=== PATIENT | male | born 1945 | race Caucasian/White ===

== ENCOUNTER 2022-06-16 18:16 | Inpatient (IN) ==
[2022-06-16 18:56] LABS: Immature Platelets 7.5 % (1.1-6.1); Nucleated Red Blood Cells 0.3 /100 WBC (0)
[2022-06-16 19:01] LABS: Basophils % 0.1 %; Eosinophils # 0.2 K/mcL (0.0-0.6); Eosinophils % 2.7 %; Immature Granulocytes % 0.4 % (0-4); Lymphocytes % 12.6 %; Mean Corpuscular HGB Conc 26.4 g/dL (31.6-35.5); Mean Corpuscular Hemoglobin 25.6 pg (28.0-33.3); Mean Corpuscular Volume 96.8 fL (83.0-100.0); Monocytes # 0.7 K/mcL (0.0-1.3); Monocytes % 10.3 %; Platelet Count 224 K/mcL (140-400); Red Blood Count 1.25 M/mcL (4.19-5.50); Red Cell Distribution Width 18.7 % (11.5-14.5); Segmented Neutrophils % 73.9 %; White Blood Count 6.7 K/mcL (4.3-11.1)
[2022-06-16 19:14] LABS: Lymphocytes # 0.8 K/mcL (0.6-4.6)
[2022-06-16 19:15] LABS: Hematocrit 12.1 % (37.5-50.1); Hemoglobin 3.2 g/dL (12.9-16.9)
[2022-06-16 19:26] LABS: Anisocytosis 1+ (Not Present); BUN/Creatinine Ratio 18 (6-26); Blood Urea Nitrogen 17 mg/dL (8-23); Calcium 8.3 mg/dL (8.6-10.3); Carbon Dioxide 32 mEq/L (23-29); Chloride 100 mEq/L (98-107); Glucose 112 mg/dL (70-105); Hypochromasia Present (Not Present); Osmolality,Calculated 284 (280-300); Platelet Estimate Normal (Normal); Poikilocytosis 1+ (Not Present); Potassium 4.2 mEq/L (3.5-5.1); Sodium 136 mEq/L (136-145); Troponin I 0.45 ng/mL (< 0.04); eGFR For African Americans > 60 (> 60); eGFR For Non-African Americans > 60 (> 60)
[2022-06-16] MEDS ORDERED: 0.9 % Sodium Chloride 250 ML ONE (20:28)
[2022-06-16] MEDS ORDERED: Iopamidol - 370 500 ML MLS IVP ONE (21:04)
[2022-06-16] MEDS ORDERED: Naloxone 0.4 MG/ML INJ IVP PRN (21:12)
[2022-06-16] MEDS ORDERED: *HR* HYDROcodone/Acet 5/325 mg TABLET PO PRN (21:12)
[2022-06-16] MEDS ORDERED: Acetaminophen 325 MG TABLET PO PRN (21:12)
[2022-06-16] MEDS ORDERED: *HR* OxyCODONE Immed Rel 5 MG TABLET PO PRN (21:12)
[2022-06-16] MEDS ORDERED: *HR* Promethazine 25 MG/ML VIAL IM PRN (21:12)
[2022-06-16] MEDS ORDERED: Ondansetron 4 MG/2 ML VIAL IVP PRN (21:12)
[2022-06-16] MEDS ORDERED: Melatonin 3 MG TABLET PO PRN (21:12)
[2022-06-16 21:55] LABS: % Iron Saturation 3 % (20-55); Ferritin < 8 ng/mL (20-250); Iron 15 mcg/dL (65-175); Transferrin 389 mg/dL (203-362)
[2022-06-16 22:01] LABS: Folate 12.3 ng/mL (3.0-16.0)
[2022-06-16 22:01] LABS: Immature Reticulocyte % 18.3 % (11.0-38.0); Retculocyte # 0.02 M/mcL (0.05-0.10); Reticulocyte % 2.1 % (1.6-2.8)
[2022-06-16] MEDS ORDERED: Cyanocobalamin (B-12) 1,000 MCG/ML VIAL SQ ONE (22:04)
[2022-06-16] MEDS ORDERED: Furosemide 20 MG/2 ML VIAL IVP ONE (22:05)
[2022-06-16 22:06] LABS: INR 1.1; Prothrombin Time 12.4 Seconds (9.4-12.1)
[2022-06-16] MEDS ORDERED: hydrOXYzine pamoate 25 MG CAPSULE PO ONE (22:45)
[2022-06-16] MEDS ORDERED: Nicotine 21 MG PATCH.TD24 TD SCH (22:45)
[2022-06-17] MEDS ORDERED: Nicotine 21 MG PATCH.TD24 TD ONE (00:30)
[2022-06-17] MEDS: Pantoprazole 40 MG VIAL IVP SCH ×2 (04:39→17:03)
[2022-06-17 05:38] LABS: Basophils % 0.5 %; Mean Platelet Volume 11.3 fL (9.4-12.4); Red Blood Count 1.79 M/mcL (4.19-5.50)
[2022-06-17 05:39] LABS: Eosinophils # 0.2 K/mcL (0.0-0.6); Eosinophils % 3.2 %; Immature Granulocytes % 0.3 % (0-4); Lymphocytes # 0.9 K/mcL (0.6-4.6); Lymphocytes % 14.9 %; Mean Corpuscular HGB Conc 29.4 g/dL (31.6-35.5); Mean Corpuscular Hemoglobin 27.9 pg (28.0-33.3); Monocytes # 0.7 K/mcL (0.0-1.3); Monocytes % 11.8 %; Nucleated Red Blood Cells 0.5 /100 WBC (0); Platelet Count 173 K/mcL (140-400); Red Cell Distribution Width 16.6 % (11.5-14.5); Segmented Neutrophils % 69.3 %; White Blood Count 6.3 K/mcL (4.3-11.1)
[2022-06-17 05:48] LABS: INR 1.1; Prothrombin Time 12.4 Seconds (9.4-12.1)
[2022-06-17 05:49] LABS: Neutrophils # 4.4 K/mcL (1.6-8.9)
[2022-06-17 06:03] LABS: Alanine Aminotransferase 8 Units/L (7-52); Albumin 3.2 g/dL (3.5-5.7); Albumin/Globulin Ratio 1.2 (1.1-2.2); Alkaline Phosphatase 66 Units/L (34-104); Aspartate Amino Transferase 16 Units/L (13-39); BUN/Creatinine Ratio 20 (6-26); Bilirubin,Total 0.6 mg/dL (0.3-1.0); Blood Urea Nitrogen 17 mg/dL (8-23); Calcium 8.3 mg/dL (8.6-10.3); Carbon Dioxide 31 mEq/L (23-29); Chloride 102 mEq/L (98-107); Globulin 2.6 g/dL (2.4-3.5); Glucose 85 mg/dL (70-105); Magnesium 2.1 mg/dL (1.6-2.6); Osmolality,Calculated 285 (280-300); Phosphorous 3.2 mg/dL (2.7-4.5); Potassium 4.3 mEq/L (3.5-5.1); Sodium 137 mEq/L (136-145); Total Protein 5.8 g/dL (6.4-8.9); eGFR For African Americans > 60 (> 60); eGFR For Non-African Americans > 60 (> 60)
[2022-06-17 06:18] LABS: Hypochromasia Present (Not Present); Platelet Estimate Normal (Normal); Polychromasia 1+ (Not Present)
[2022-06-17] MEDS ORDERED: 0.9 % Sodium Chloride 250 ML ONE ×2 (06:28→10:22)
[2022-06-17] MEDS: Nicotine 21 MG PATCH.TD24 TD SCH (07:54)
[2022-06-17 09:31] LABS: Alanine Aminotransferase 8 Units/L (7-52); Albumin 3.5 g/dL (3.5-5.7); Albumin/Globulin Ratio 1.2 (1.1-2.2); Alkaline Phosphatase 79 Units/L (34-104); Aspartate Amino Transferase 14 Units/L (13-39); Bilirubin,Direct 0.1 mg/dL (0.0-0.2); Bilirubin,Indirect 0.2 mg/dL (0.0-1.0); Bilirubin,Total 0.3 mg/dL (0.3-1.0); Globulin 2.9 g/dL (2.4-3.5); Total Protein 6.4 g/dL (6.4-8.9)
[2022-06-17 14:31] LABS: Hematocrit 24.1 % (37.5-50.1); Hemoglobin 7.4 g/dL (12.9-16.9)
[2022-06-17] MEDS ORDERED: SODIUM CHLORIDE/NAHCO3/KCL/PEG 4,000 ML SOLN.RECON PO ONE (17:00)
[2022-06-17] MEDS: ALPRAZolam 0.25 MG TABLET PO PRN (22:10)
[2022-06-18 03:23] LABS: Nucleated Red Blood Cells 0.5 /100 WBC (0)
[2022-06-18 03:25] LABS: Basophils % 0.5 %; Eosinophils # 0.2 K/mcL (0.0-0.6); Eosinophils % 3.9 %; Hemoglobin 6.9 g/dL (12.9-16.9); Immature Granulocytes % 0.4 % (0-4); Immature Platelets 8.1 % (1.1-6.1); Lymphocytes # 0.9 K/mcL (0.6-4.6); Lymphocytes % 15.3 %; Mean Corpuscular HGB Conc 31.4 g/dL (31.6-35.5); Mean Corpuscular Hemoglobin 28.8 pg (28.0-33.3); Mean Corpuscular Volume 91.7 fL (83.0-100.0); Mean Platelet Volume 11.1 fL (9.4-12.4); Monocytes # 0.8 K/mcL (0.0-1.3); Monocytes % 13.7 %; Neutrophils # 3.7 K/mcL (1.6-8.9); Platelet Count 141 K/mcL (140-400); Red Cell Distribution Width 17.3 % (11.5-14.5); Segmented Neutrophils % 66.2 %; White Blood Count 5.6 K/mcL (4.3-11.1)
[2022-06-18 03:35] LABS: Phosphorous 2.7 mg/dL (2.7-4.5)
[2022-06-18] MEDS: Pantoprazole 40 MG VIAL IVP SCH ×2 (05:03→17:46)
[2022-06-18] MEDS: Furosemide 20 MG/2 ML VIAL IVP SCH ×2 (07:52→17:46)
[2022-06-18] MEDS: Nicotine 21 MG PATCH.TD24 TD SCH (07:53)
[2022-06-18] MEDS ORDERED: Iron Sucrose Complex 400 MG in 0.9 % Sodium Chloride 250 ML IVPB ONE (09:00)
[2022-06-18 09:28] LABS: Hemoglobin 7.6 g/dL (12.9-16.9)
[2022-06-18] MEDS ORDERED: Cyanocobalamin (B-12) 1,000 MCG/ML VIAL SQ ONE (10:45)
[2022-06-18] MEDS ORDERED: Perflutren Lipid Microsphere 1.3 ML in 0.9 % Sodium Chloride 8.7 ML IVP PRN (11:02)
[2022-06-18] MEDS: ALPRAZolam 0.25 MG TABLET PO PRN ×2 (13:46→20:21)
[2022-06-18] MEDS ORDERED: Lidocaine -MPF 2% 5 ML VIAL ONE (14:01)
[2022-06-18] MEDS ORDERED: *HR* Propofol 200 MG/20 ML VIAL IVP ONE (15:36)
[2022-06-18] MEDS: Pregabalin 75 MG CAPSULE PO SCH (20:21)
[2022-06-19 03:42] LABS: Basophils % 0.2 %; Eosinophils # 0.2 K/mcL (0.0-0.6); Eosinophils % 1.7 %; Hematocrit 25.2 % (37.5-50.1); Hemoglobin 7.4 g/dL (12.9-16.9); Immature Granulocytes % 0.3 % (0-4); Lymphocytes # 0.6 K/mcL (0.6-4.6); Lymphocytes % 6.7 %; Mean Corpuscular HGB Conc 29.4 g/dL (31.6-35.5); Mean Corpuscular Volume 95.5 fL (83.0-100.0); Mean Platelet Volume 11.3 fL (9.4-12.4); Monocytes % 9.6 %; Neutrophils # 7.2 K/mcL (1.6-8.9); Nucleated Red Blood Cells 0.2 /100 WBC (0); Platelet Count 146 K/mcL (140-400); Red Blood Count 2.64 M/mcL (4.19-5.50); Red Cell Distribution Width 17.4 % (11.5-14.5); Segmented Neutrophils % 81.5 %
[2022-06-19 03:44] LABS: Monocytes # 0.8 K/mcL (0.0-1.3); White Blood Count 8.8 K/mcL (4.3-11.1)
[2022-06-19 04:01] LABS: BUN/Creatinine Ratio 14 (6-26); Blood Urea Nitrogen 16 mg/dL (8-23); Calcium 8.1 mg/dL (8.6-10.3); Carbon Dioxide 33 mEq/L (23-29); Chloride 98 mEq/L (98-107); Glucose 117 mg/dL (70-105); Magnesium 1.8 mg/dL (1.6-2.6); Osmolality,Calculated 288 (280-300); Phosphorous 3.3 mg/dL (2.7-4.5); Potassium 3.2 mEq/L (3.5-5.1); Sodium 138 mEq/L (136-145); eGFR For African Americans > 60 (> 60); eGFR For Non-African Americans > 60 (> 60)
[2022-06-19] MEDS: Pantoprazole 40 MG VIAL IVP SCH ×2 (06:48→16:22)
[2022-06-19] MEDS ORDERED: SULFUR HEXAFLUORIDE MICROSPHR 25 MG VIAL IVP ONE ×2 (08:41→10:20)
[2022-06-19] MEDS: Nicotine 21 MG PATCH.TD24 TD SCH (09:32)
[2022-06-19] MEDS: ALPRAZolam 0.25 MG TABLET PO PRN ×2 (09:34→16:23)
[2022-06-19] MEDS: Pregabalin 75 MG CAPSULE PO SCH ×2 (09:34→21:40)
[2022-06-19] MEDS: Furosemide 20 MG/2 ML VIAL IVP SCH ×2 (09:34→16:23)
[2022-06-19] MEDS: Cyanocobalamin (B-12) 1,000 MCG TABLET PO SCH (09:35)
[2022-06-19] MEDS: Magnesium Oxide 400 MG TABLET PO SCH (09:35)
[2022-06-19] MEDS ORDERED: SULFUR HEXAFLUORIDE MICROSPHR 25 MG VIAL IVP PRN (10:24)
[2022-06-19 17:43] LABS: % Iron Saturation 47 % (20-55); Iron 186 mcg/dL (65-175); Transferrin 281 mg/dL (203-362)
[2022-06-19 17:48] LABS: Ferritin 234 ng/mL (20-250)
[2022-06-20 03:27] LABS: Basophils % 0.3 %; Eosinophils # 0.3 K/mcL (0.0-0.6); Eosinophils % 2.8 %; Hematocrit 24.1 % (37.5-50.1); Hemoglobin 7.2 g/dL (12.9-16.9); Immature Granulocytes % 0.5 % (0-4); Lymphocytes # 0.9 K/mcL (0.6-4.6); Lymphocytes % 8.4 %; Mean Corpuscular HGB Conc 29.9 g/dL (31.6-35.5); Mean Corpuscular Hemoglobin 28.3 pg (28.0-33.3); Mean Corpuscular Volume 94.9 fL (83.0-100.0); Mean Platelet Volume 11.1 fL (9.4-12.4); Monocytes # 1.2 K/mcL (0.0-1.3); Monocytes % 11.2 %; Neutrophils # 8.5 K/mcL (1.6-8.9); Nucleated Red Blood Cells 0.2 /100 WBC (0); Platelet Count 155 K/mcL (140-400); Red Blood Count 2.54 M/mcL (4.19-5.50); Red Cell Distribution Width 17.2 % (11.5-14.5); Segmented Neutrophils % 76.8 %; White Blood Count 11.1 K/mcL (4.3-11.1)
[2022-06-20 03:48] LABS: BUN/Creatinine Ratio 22 (6-26); Blood Urea Nitrogen 19 mg/dL (8-23); Calcium 8.2 mg/dL (8.6-10.3); Carbon Dioxide 36 mEq/L (23-29); Chloride 99 mEq/L (98-107); Glucose 122 mg/dL (70-105); Osmolality,Calculated 294 (280-300); Potassium 3.6 mEq/L (3.5-5.1); Sodium 140 mEq/L (136-145); eGFR For African Americans > 60 (> 60); eGFR For Non-African Americans > 60 (> 60)
[2022-06-20] MEDS: Pantoprazole 40 MG VIAL IVP SCH ×2 (06:35→16:46)
[2022-06-20] MEDS ORDERED: 0.9 % Sodium Chloride 250 ML IVC SCH (07:15)
[2022-06-20] MEDS: Furosemide 20 MG TABLET PO SCH (10:26)
[2022-06-20] MEDS: Cyanocobalamin (B-12) 1,000 MCG TABLET PO SCH (10:26)
[2022-06-20] MEDS: Magnesium Oxide 400 MG TABLET PO SCH (10:26)
[2022-06-20] MEDS: Pregabalin 75 MG CAPSULE PO SCH ×2 (10:26→19:50)
[2022-06-20] MEDS: Nicotine 21 MG PATCH.TD24 TD SCH (10:27)
[2022-06-20] MEDS ORDERED: Furosemide 20 MG TABLET PO ONE (16:00)
[2022-06-20 17:17] LABS: Hematocrit 28.4 % (37.5-50.1); Hemoglobin 8.5 g/dL (12.9-16.9)
[2022-06-21 03:35] LABS: Basophils # 0.1 K/mcL (0.0-0.2); Basophils % 0.5 %; Eosinophils # 0.3 K/mcL (0.0-0.6); Eosinophils % 3.3 %; Hemoglobin 8.7 g/dL (12.9-16.9); Immature Granulocytes % 0.5 % (0-4); Lymphocytes % 9.7 %; Mean Corpuscular Hemoglobin 28.4 pg (28.0-33.3); Mean Platelet Volume 11.4 fL (9.4-12.4); Monocytes % 10.2 %; Neutrophils # 7.6 K/mcL (1.6-8.9); Nucleated Red Blood Cells 0.2 /100 WBC (0); Platelet Count 157 K/mcL (140-400); Red Blood Count 3.06 M/mcL (4.19-5.50); Red Cell Distribution Width 18.4 % (11.5-14.5); Segmented Neutrophils % 75.8 %
[2022-06-21 03:52] LABS: BUN/Creatinine Ratio 28 (6-26); Blood Urea Nitrogen 25 mg/dL (8-23); Calcium 8.6 mg/dL (8.6-10.3); Carbon Dioxide 37 mEq/L (23-29); Chloride 98 mEq/L (98-107); Glucose 184 mg/dL (70-105); Magnesium 1.7 mg/dL (1.6-2.6); Osmolality,Calculated 297 (280-300); Potassium 3.8 mEq/L (3.5-5.1); Sodium 139 mEq/L (136-145); eGFR For African Americans > 60 (> 60); eGFR For Non-African Americans > 60 (> 60)
[2022-06-21] MEDS: Pantoprazole 40 MG VIAL IVP SCH (06:31)
[2022-06-21] MEDS: Nicotine 21 MG PATCH.TD24 TD SCH (08:52)
[2022-06-21] MEDS: Furosemide 20 MG TABLET PO SCH (08:52)
[2022-06-21] MEDS: Pregabalin 75 MG CAPSULE PO SCH (08:52)
[2022-06-21] MEDS: Magnesium Oxide 400 MG TABLET PO SCH (08:52)
[2022-06-21] MEDS: Cyanocobalamin (B-12) 1,000 MCG TABLET PO SCH (08:52)
[2022-06-21 14:34] VITALS: BP 134/53; PULSE 75; TEMP 97.6; O2SAT 98
== END 2022-06-21 17:29 | disposition home or self-care (01) | DRG 393 ==
LOC: EMEROOARM 18:16 → 2ANU 18:16 → SUATTDRO 21:16 → 2ANU 22:51 → SUATTDRO 06-18 10:25
PROVIDERS: ADMIT Internal Medicine; ATTEND General Practice